=== PATIENT | female | born 1965 | race Caucasian/White ===

== ENCOUNTER 2016-12-11 10:54 | Outpatient (CLI) | payer BC ==
[~2016-12-11] VITALS: Ht 165.1 cm; Wt 85.9 kg
--- NOTE | ~2016-12-11 | HEMODYNAMI ---
PATIENT:ERICK LEGGETT MEDICAL RECORD: [id number] : 65 LOCATION:[facility] ADMISSION DATE: 12/11/16 Generatedon:12/11/201613:15 Patient name: ERICK LEGGETT Patient #: [id number] SSN: : 1965 Date of study: 12/11/2016 Page: Of Hemodynamic Procedure Report Patient Data Patient Demographics Procedure consent was obtained First Name: ERICK Gender: Female Last Name: OLEKSANDR : 1965 [facility] Initial: [place] Age: 51 year(s) Patient #: [id number] Race: Unknown Additional ID: [id number] Contact details [address]: [address] [place] [address] rd State: [place] City: [place] Zip code: [address] Past Medical History Allergies Allergen Reaction Date Comments Reported Other allergy 12/11/2016 Sulfa, PCN, Codeine, Morphine. Admission Admission Data Admission Date: 12/11/2016 Admission Time: 10:54 Lab Results Lab Result Date: 12/11/2016 Lab Result Time: 0:00 Biochemistry Name Units Result Min Max BUN mg/dl 17 --(---*)-- 7 18 Creatinine mg/dl 0.9 --(-*--)-- 0.6 1.3 CBC Name Units Result Min Max Hematocrit % 42.5 --(*---)-- 42 54 Hemoglobin g/dl 14.2 --(*---)-- 13.5 17.5 Procedure Procedure Types Cath Procedure Diagnostic Procedure LHC LHC w/Coronaries Miscellaneous Procedures Moderate Sedation up to 15 minutes Procedure Description Procedure Date Procedure Date: 12/11/2016 Procedure Start Time: 13:03 Procedure End Time: 13:15 Procedure Staff Name Function Eliot Grover MD Performing Physician Evon Crespo RT Scrub Ryan Rolon RN Nurse Davie Whittaker RT Monitor Procedure Data Cath Procedure Fluoroscopy Diagnostic fluoroscopy Total fluoroscopy Time: 1.4 time: 1.4 min min Diagnostic fluoroscopy Total fluoroscopy dose: 174 dose: 174 mGy mGy Contrast Material Contrast Material Type Amount (ml) Isovue 300 48 Entry Location Entry Primary Successful Side Size Upsize Upsize Entry Closure Cohen ccessful Closure Location (Fr) 1 (Fr) 2 (Fr) Remarks Device Remarks Radial Right 6 Fr Mechanical artery Short Compression Estimated blood loss: 5 ml Diagnostic catheters Device Type Used For End Catheter Placement Terumo 5Fr [place] 110cm Procedure catheter Procedure Complications No complications Procedure Medications Medication Administration Route Dosage Oxygen NC 2 l/min Heparin Flush Bag added to field 2 bags (1000units/500ml NS) 0.9% NaCl I.V. 100 ml/hr Radial Cocktail added to field 1 syringe (Verapomil 2mg/Nitro 400mcg/Heparin 1500units) Fentanyl I.V. 50 mcg Versed I.V. 1 mg Fentanyl I.V. 50 mcg Versed I.V. 1 mg Fentanyl I.V. 50 mcg Fentanyl I.V. 50 mcg Radial Cocktail I.A. 1 syringe (Verapomil 2mg/Nitro 400mcg/Heparin 1500units) Fentanyl I.V. 50 mcg Fentanyl I.V. 50 mcg Hemodynamics Rest HGB: 14.2 (g/dl) Heart Rate: 73 (bpm) Pressure Samples Time Site Value (mmHg) Purpose Heart Use Rate(bpm) 13:07 LV 139/-1,14 Snapshot 84 13:08 AO 113/73(87) Pullback 86 13:08 LV 136/1,15 Pullback 86 Gradients Valve Time Site 1 Site 2 Mean SEP/DFP Peak To Heart Use (mmHg) (sec/min) Peak Rate (mmHg) (bpm) Aortic 13:08 LV AO 11 20 23 86 136/1,15 113/73(87) Calculations Valve P-P Mean Valve Index Valve Source Name Gradient Area Flow (cm2) Aortic 23 11 23 11 Snapshots Pre Cath Intra NCS Post Cath Vital Signs Time Heart Resp SPO2 etCO2 XX3kilq NIBP (mmHg) Rhythm Pain Sedation Rate (ipm) (%) (mmHg) (mmHg) Status Level (bpm) 12:48:13 72 16 100 0 0 117/71(89) NSR 0 (11) 10(A) , No pain 12:52:25 72 17 100 0 0 119/72(99) NSR 0 (11) 10(A) , No pain 12:56:37 73 17 100 0 0 114/70(91) NSR 0 (11) 10(A) , No pain 13:00:45 84 17 94 0 0 115/76(100) NSR 0 (11) 10(A) , No pain 13:04:55 77 18 94 0 0 114/72(96) NSR 0 (11) 10(A) , No pain 13:09:07 86 17 93 0 0 117/64(83) NSR 0 (11) 9(A) , No pain 13:13:20 81 18 94 0 0 103/63(85) NSR 0 (11) 9(A) , No pain Medications Time Medication Route Dose Verified Delivered Reason Notes Effectiveness by by 12:48:22 Oxygen NC 2 l/min Ryan Ryan Per Gonzales Rolon RN physician RN 12:48:35 Heparin Flush added 2 bags Ryan Ryan used for Bag to Gonzales Rolon flexographic press operator (1000units/500ml field RN NS) 12:48:49 0.9% NaCl I.V. 100 Ryan Ryan Per ml/hr Gonzales Rolon RN physician RN 12:48:59 Radial Cocktail added 1 Ryan Ryan used for (Verapomil to syringe Gonzales Rolon RN procedure 2mg/Nitro field RN 400mcg/Heparin 1500units) 12:56:33 Fentanyl I.V. 50 mcg Ryan Ryan for sedation Gonzales Rolon RN RN 12:56:40 Versed I.V. 1 mg Ryan Ryan for sedation Gonzales Rolon RN RN 12:58:32 Fentanyl I.V. 50 mcg Ryan Ryan for sedation Gonzales Rolon RN RN 12:58:35 Versed I.V. 1 mg Ryan Ryan for sedation Gonzales Rolon RN RN 13:03:31 Fentanyl I.V. 50 mcg Ryan Ryan for sedation Gonzales Rolon RN RN 13:04:39 Fentanyl I.V. 50 mcg Ryan Ryan for sedation Gonzales Rolon RN RN 13:06:02 Radial Cocktail I.A. 1 Ryan Eliot for (Verapomil syringe Gonzales Grover MD vasodilation 2mg/Nitro RN 400mcg/Heparin 1500units) 13:08:01 Fentanyl I.V. 50 mcg Ryan Eliot for sedation Gonzales Grover MD, RN 13:10:02 Fentanyl I.V. 50 mcg Ryan Mccabe for sedation Gonzales Grover MD, RN Procedure Log Time Note 12:25:41 Ryan Rolon RN sent for patient. Start room use. 12:33:04 Time tracking: Regular hours 12:33:15 Plan of Care:Hemodynamics will remain stable., Cardiac rhythm will remain stable., Comfort level will be maintained., Respiratory function will remain adequate., Patient/ family verbilizes understanding of procedure., Procedure tolerated without complication., Recovers from procedure without complications.. 12:39:58 Patient received from Pre/Post Procedure Room to CCL 1 Alert and oriented. Tansferred to table in Supine position. 12:39:59 Warm blankets applied, and chiara hugger turned on for patient comfort. 12:40:00 Correct patient and procedure confirmed by team. 12:40:02 Signed procedure consent form obtained from patient. 12:40:03 ECG and BP/O2 sat monitors applied to patient. 12:47:11 Vital chart was started 12:48:22 Oxygen 2 l/min NC was administered by Ryan Rolon RN; Per physician; 12:48:35 Heparin Flush Bag (1000units/500ml NS) 2 bags added to field was administered by Ryan Rolon RN; used for procedure; 12:48:49 0.9% NaCl 100 ml/hr I.V. was administered by Ryan Rolon RN; Per physician; 12:48:59 Radial Cocktail (Verapomil 2mg/Nitro 400mcg/Heparin 1500units) 1 syringe added to field was administered by Ryan Rolon RN; used for procedure; 12:53:43 Baseline sample Acquired. 12:53:50 Rhythm: sinus rhythm 12:54:03 H&P Date Dictated: 12/10/2016 Within 30 days and on chart., H&P Addendum completed by physician on day of procedure. (MUST COMPLETE FOR ALL OUTPATIENTS). 12:54:04 Pre-procedure instructions explained to patient. 12:54:04 Pre-op teaching completed and patient verbalized understanding. 12:54:06 Family in waiting room. 12:54:07 Patient NPO since Midnight. 12:54:31 Patient allergic to Other allergySulfa, PCN, Codeine, Morphine. 12:54:39 Is the patient allergic to Iodine/contrast media? No. 12:54:41 Is patient on blood thinner?No 12:54:42 Patient diabetic? No. 12:54:46 Patient not . Patient has had hysterectomy. 12:54:49 Previous problem with sedation/anesthesia? No ? 12:54:50 Snore? No 12:54:51 Sleep apnea? No 12:54:52 Deviated septum? No 12:54:53 Opens mouth fully? Yes 12:54:54 Sticks out tongue? Yes 12:54:56 Airway obstruction? No ? 12:54:58 Dentures? No ? 12:55:04 Modified Everardo's test Ulnar < 7 seconds 12:55:06 Patient pain scale 0/10 ?. 12:55:15 IV patent on arrival in left forearm with 0.9% NaCl at [facility]. 12:55:47 Lab Result : BUN 17 mg/dl 12:55:47 Lab Result : Creatinine 0.9 mg/dl 12:55:47 Lab Result : Hemoglobin 14.2 g/dl 12:55:47 Lab Result : Hematocrit 42.5 % 12:55:50 Lab results completed and on chart. 12:55:52 Right Radial & Right Groin area was prepped with chlora-prep and draped in sterile fashion 12:55:53 Alarms reviewed by R. N. 12:55:53 Sharps counted by scrub and verified by R.N. 12:56:01 Physician arrived 12:56:01 --------ALL STOP TIME OUT------ 12:56:01 Final Timeout: patient, procedure, and site verified with staff and physician. All members of the team are in agreement. 12:56:03 Right Radial & Right Groin site verified by team. 12:56:06 Physical assessment completed. ASA score P 2 - A patient with mild systemic disease as per Eliot Grover MD. 12:56:10 Sedation plan: IV Moderate Sedation Versed, Fentanyl 12:56:13 Use device set Radial Dx 12:56:14 MBrace Wrist Support opened to sterile field. 12:56:15 Tegaderm 4 x 4 opened to sterile field. 12:56:15 Acist Manifold opened to sterile field. 12:56:16 Acist Hand Control opened to sterile field. 12:56:17 Acist Syringe opened to sterile field. 12:56:18 Medline Cath Pack opened to sterile field. 12:56:18 Bag Decanter opened to sterile field. 12:56:19 Terumo 6Fr Slender Glidesheath opened to sterile field. 12:56:20 St Kvng 260cm J .035 wire opened to sterile field. 12:56:33 Fentanyl 50 mcg I.V. was administered by Ryan Rolon RN; for sedation; 12:56:40 Versed 1 mg I.V. was administered by Ryan Rolon RN; for sedation; 12:58:32 Fentanyl 50 mcg I.V. was administered by Ryan Rolon RN; for sedation; 12:58:35 Versed 1 mg I.V. was administered by Ryan Rolon RN; for sedation; 13:02:53 Zero performed for pressure channel P1 13:03:20 Procedure started. 13:03:20 Full Disclosure recording started 13:03:25 Local anesthetic to right radial artery with Lidocaine 2% by Eliot Grover MD.INITIAL ACCESS ONLY 13:03:31 Fentanyl 50 mcg I.V. was administered by Ryan Rolon RN; for sedation; 13:04:39 Fentanyl 50 mcg I.V. was administered by Ryan Rolon RN; for sedation; 13:05:13 A 6 Fr Short sheath was inserted into the Right Radial artery 13:06:02 Radial Cocktail (Verapomil 2mg/Nitro 400mcg/Heparin 1500units) 1 syringe I.A. was administered by Eliot Grover MD; for vasodilation; 13:06:23 A Terumo 5Fr [place] 110cm catheter was advanced over the wire and used for Procedure. 13:07:35 LV gram done using SHIRLEY 13:07:38 Injector settings: Ml/sec: 10, Volume: 20, 13:07:51 EF : 60 % 13:08:01 Fentanyl 50 mcg I.V. was administered by Eliot Grover MD; for sedation; 13:08:34 LCA angiography performed. 13:09:43 RCA angiography performed. 13:10:02 Fentanyl 50 mcg I.V. was administered by Eliot Grover MD; for sedation; 13:10:09 Terumo TR Band Standard opened to sterile field. 13:10:59 Catheter removed. 13:11:07 Sheath removed intact; hemostasis achieved with Mechanical Compression to the Right Radial artery. 13:11:09 Procedure ended.(Physican Out) 13:11:47 Fluoroscopy time 01.40 minutes. 13:11:52 Fluoroscopy dose: 174 mGy 13:11:52 Flurop Dose total: 174 13:12:07 Contrast amount:Isovue 300 48ml. 13:12:08 Sharps counted by scrub and verified by R.N. 13:12:11 TR band inflated with 12cc of air. 13:12:13 Insertion/operative site no bleeding no hematoma. 13:12:32 Post right radial artery:stable, soft, clean and dry 13:12:35 Post Procedure Pulses reassessed and unchanged 13:12:38 Post-procedure physical assessment completed. ASA score P 2 - A patient with mild systemic disease as per Eliot Grover MD. 13:12:40 Post procedure rhythm: unchanged. 13:12:43 Estimated blood loss: 5 ml 13:12:44 Post procedure instruction explained to patient.Patient verbalizes understanding. 13:12:45 Patient needs reinforcement of post procedure teaching. 13:14:28 Procedure type changed to Cath procedure, Diagnostic procedure, LHC, LHC w/Coronaries, Miscellaneous Procedures, Moderate Sedation up to 15 minutes 13:14:46 Procedure and supply charges have been captured, reviewed, submitted and are correct. 13:14:48 Procedure Complication : No complications 13:14:50 Vital chart was stopped 13:14:51 See physician's report for complete and final results. 13:14:52 Report given to Pre/Post Procedure Room. 13:15:00 Patient transfered to Pre/Post Procedure Room with Stretcher. 13:15:05 Procedure ended. 13:15:05 Full Disclosure recording stopped 13:15:11 End room use (Document Last) Device Usage Item Name Manufacture Quantity Catalog Hospital Part Current Minimal Lot# / Number Charge Number Stock Stock Serial# Code [facility] 1 140-0250-00 812558 91307 376678 5 Wrist Vascular Support Dynamics Tegaderm 4 3M 1 1626W 908326 310300 787354 5 x 4 Acist Acist 1 81045 371653 793122 280942 5 Multiplicom Inc Acist Hand Acist 1 57381 579683 381236 774247 5 Tunepresto Inc Acist Acist 1 72404 612724 888768 310243 20 Syringe Medical Systems Inc Medline Cardinal 1 [id number] 439554 77955 897092 5 Cath Pack Health Bag Microtek 1 757743 40913 190842 5 Decanter Medical Inc. Terumo 6Fr Terumo 1 [id number] 622380 352218 367010 [address] K[address] St Kvng 1 062002 153113 668004 679518 30 260cm J .035 wire Terumo 5Fr Terumo 1 40501 708758 170247 702101 5 [place] 110cm catheter Terumo TR Terumo 1 [id number] 799733 825195 965308 40 Band Standard Signature Audit [place] Stage Time Signature Unsigned Intra-Procedure 12/11/2016 Davie Whittaker 1:15:34 PM RT(R) Signatures Monitor : Davie Whittaker RT Signature : Date : Time : [id number] [place] [address]
[~2016-12-11 10:54] MED LIST: DESERYL100 MG PO; MOBIC7.5 MG PO; NEURONTIN 300300 MG PO; NEURONTIN600 MG; NEURONTIN600 MG PO; POTASSIUM CHLO20 MEQ; POTASSIUM CITRA5 MEQ PO; SOMA250 MG PO; SOMA350 MG PO; SYNTHROID75 MCG PO; XANAX0.5 MG PO
[2016-12-11] MEDS ORDERED: XANAX0.25 MG PO (11:06)
[2016-12-11 11:15] VITALS: BP 121/67; Ht 165.1 cm; Wt 85.9 kg
[2016-12-11 11:23] LABS: BASOPHILS 0.4 % (0.0-2.0); EOSINOPHILS 1.2 % (0-7); HEMATOCRIT 42.5 % (36.0-48.0); HEMOGLOBIN 14.2 g/dL (12-16); IMMATURE GRANULOCYTES 0.2 % (0-5); LYMPHOCYTES 23.7 % (15-50); MCH 30.3 pg (26.0-34.0); MCHC 33.4 g/dL (31.0-37.0); MCV 90.8 fL (80.0-100.0); MEAN PLATELET VOLUME 9.1 fL (7.4-10.4); MONOCYTES 6.5 % (2-11); PLATELET COUNT 305 10x3/uL (130-400); RBC 4.68 10x6/uL (4.00-5.40); RDW 13.2 % (11.5-14.5); WBC 10.4 10x3/uL (4.8-10.8)
[2016-12-11 11:43] LABS: ANION GAP 14.6 mmol/L (8-16); CALCIUM 9.2 mg/dL (8.5-10.1); CARBON DIOXIDE 24.8 mmol/L (21.0-32.0); CREATININE - SERUM 0.9 mg/dL (0.6-1.3); POTASSIUM - SERUM 4.4 mmol/L (3.5-5.1)
--- NOTE | 2016-12-11 13:49 | NUR ---
1340 HOB ELEVATED, RESTING WITH EYES CLOSED. ROOM AIR WITH NO RESP. DISTRESS. NSR RATE 61 W NO C/O CHEST PAIN. PULSES PALP X 4. R WRIST TR BAND C/D/I WITH NO HEMATOMA OR BLEEDING. FAMILY AT BEDSIDE. DENIES NEEDS AT THIS TIME. 1350 SITTING UP EATING TURKEY TRAY AND SIPPING SODA, NO NAUSEA.
--- NOTE | 2016-12-11 14:39 | NUR ---
1410 RESTING WITH EYES CLOSED. ALL VITALS WNL. R WRIST TR REMAINS C/D/I WITH NO HEMATOMA OR BLEEDING.
--- NOTE | 2016-12-11 15:30 | NUR ---
3CC OF AIR REMOVED FROM TR BAND. NO BLEEDING NOTED.
--- NOTE | 2016-12-11 15:45 | NUR ---
2CC OF AIR REMOVED FROM TR BAND. NO BLEEDING NOTED. LEFT FA PIV D/C'D WITH CATHTER INTACT. BAND AID TO SITE. UP TO BEDSIDE TO GET DRESSED.
--- NOTE | 2016-12-11 15:50 | NUR ---
UP TO RESTROOM TO VOID.
--- NOTE | 2016-12-11 15:55 | NUR ---
REMAINING AIR REMOVED FROM TR BAND. DRESSING PLACED AT SITE. DISCHARGE INSTRUCTIONS GIVEN, VERBALIZED UNDERSTANDING.
--- NOTE | 2016-12-11 16:05 | NUR ---
TAKEN OUT VIA WHEELCHAIR BY CATH ADMISSIONS MANAGER RN. LEFT FACILITY WITH FAMILY MEMBER AND ALL PERSONAL BELONGINGS.
--- NOTE | 2016-12-13 14:54 | OP ---
PATIENT NAME: ERICK LEGGETT MEDICAL RECORD: [id number] :65 LOCATION:[facility] ADMISSION DATE: SURGEON: GERSON LIRIANO M.D. DATE OF OPERATION: 12/11/2016 Catheterization Report REFERRING PHYSICIAN: Dr. Gerson Israel. PROCEDURES PERFORMED: 1. Selective coronary angiography. 2. Left heart catheterization and ventriculogram. INDICATION: A 51-year-old woman who presents with symptoms of accelerating angina. EQUIPMENT USED: A 5-Grenadian Seabrook catheter. TECHNIQUE: A 6-Grenadian sheath was inserted in retrograde fashion in the right radial artery. Next, selective coronary angiography was performed in standard 5-Grenadian Seabrook catheter. Left heart catheterization, we used Seabrook catheter as well. CORONARY ANATOMY: 1. Left main: Left main trunk is moderate in caliber. It gives rise to the LAD and circumflex. It is angiographically normal. 2. LAD: This is a large caliber vessel extending to the apex. 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 Otherwise, the vessel is angiographically normal. 3. Circumflex: This vessel is large in caliber and dominant. It supplies the PDA and posterolateral branches in the distal segment. This vessel is smooth-walled and angiographically normal. 4. Right coronary: This vessel is moderate caliber and nondominant. It is a smooth-walled vessel and angiographically normal. 5. Left ventricle: Left ventricle is normal in size and function. No wall motion abnormalities are noted. Estimated ejection fraction is 60%. IMPRESSION: 1. Normal coronary arteries. 2. Normal left ventricular function. RECOMMENDATIONS: I suspect her chest pain is noncardiac in origin. We will continue with medical management. TRANSINT:[id number] Voice Confirmation ID: [id number] DOCUMENT ID: [id number] GERSON LIRIANO M.D. at 1454 CC: [id number] DICTATION DATE: 12/11/16 1317 EXECUTIVE ASSISTANT TO GENERAL COUNSEL: 12/11/162032 DEP CLI 12/11/16 [id number] [place] [address]
== END 2016-12-11 16:05 | disposition home or self-care (01) ==
LOC: D.CATH 10:54
PROVIDERS: Internal Medicine Cardiovascular Disease
DX: R07.89 Other chest pain (principal)

== ENCOUNTER 2018-05-28 08:15 | Day surgery (SDC) | payer BC ==
[2018-05-27 09:56] LABS: MCH 30.4 pg (26.0-34.0); MCHC 33.3 g/dL (31.0-37.0); MCV 91.3 fL (80.0-100.0); MEAN PLATELET VOLUME 8.8 fL (7.4-10.4); RBC 4.27 10x6/uL (4.00-5.40); RDW 14.2 % (11.5-14.5); WBC 6.4 10x3/uL (4.8-10.8)
[2018-05-27 10:00] LABS: CALC OSMOLALITY 278 mosm/kg (275-300); CALCIUM 8.7 mg/dL (8.5-10.1); CARBON DIOXIDE 29.9 mmol/L (21.0-32.0); CHLORIDE - SERUM 103 mmol/L (98-107); CREATININE - SERUM 0.8 mg/dL (0.6-1.3); GLUCOSE 99 mg/dL (74-106); POTASSIUM - SERUM 4.4 mmol/L (3.5-5.1); SODIUM 138 mmol/L (136-145); UREA NITROGEN 21 mg/dL (7-18); eGFR NON AFRICAN AMERICAN 80 mL/min (90-120)
[~2018-05-28] VITALS: Ht 162.6 cm; Wt 81.6 kg
--- NOTE | ~2018-05-28 | OP ---
PATIENT NAME: ERICK LEGGETT MEDICAL RECORD: [id number] :65 LOCATION:[facility] ADMISSION DATE: SURGEON: YRUI THOMAS MD DATE OF OPERATION: 05/28/2018 PREOPERATIVE DIAGNOSIS: Recalcitrant left lateral epicondylitis. POSTOPERATIVE DIAGNOSIS: Recalcitrant left lateral epicondylitis. PROCEDURE: Lateral epicondylar excision with debridement of the lateral epicondylar extensor mass. SURGEON: Yuri Thomas MD ANESTHESIA: General. INTRAOPERATIVE COMPLICATIONS: None. SUMMARY OF PATHOLOGIC FINDINGS: The patient did have significant tendinotic appearing common origin with obvious signs of prior cortisone injections. OPERATIVE SUMMARY IN DETAIL: After obtaining the appropriate preoperative orthopedic surgery consent as well as anesthetic consultation, evaluation and clearance the patient was brought to the operating room and placed on the operating table in supine position. After adequate general laryngeal mask airway was administered, the patient's left upper extremity was prepared with a tourniquet. It was then prepped and draped in routine sterile fashion. The arm was elevated and exsanguinated, tourniquet was inflated to 250 mmHg. An incision was made directly over the lateral epicondyle, taken down to the level of the lateral epicondyle with careful dissection down to the fascial plane. Fascial plane was then gently split in an oval type fashion. The tendonotic appearing fibers deep were all excised and a complete release was performed to reveal the lateral epicondyle. A portion of the lateral epicondyle was then taken down smoothly with an osteotome to create a good bleeding surface. At this point, a single 3.0 SutureTak was then placed in the lateral epicondyle and used to reapproximate the healthy residual common extensor mechanism. This was then oversewn with a #1 Vicryl. Final skin closure was completed with a 2-0 Vicryl and 4-0 Prolene in running fashion. Sterile dressings were applied. Tourniquet was deflated. The patient was awakened, taken to recovery room in stable condition. All final needle and sponge counts were correct. TRANSINT:[id number] Voice Confirmation ID: [id number] DOCUMENT ID: [id number] YURI THOMAS MD at 1418 CC: [id number] DICTATION DATE: 05/28/18 1233 RUNNER MAN: 05/28/18 1244 DEP SD 05/28/18 [facility] [address] [place] [address]
[~2018-05-28 08:15] MED LIST changes: +DUEXIS 800-26.1 EACH PO; +PAXIL40 MG PO; +PRINZIDE 20/12.1 TA1 PO; +RESTORIL15 MG PO; +XANAX0.25 MG PO
[2018-05-28 08:48] VITALS: BP 117/65; Ht 162.6 cm; Wt 81.6 kg
[2018-05-28] MEDS ORDERED: DILAUDID2 MG PO (10:20)
== END 2018-05-28 12:15 | disposition home or self-care (01) ==
LOC: D.OPS 08:15 → D.PAN 10:10 → D.OPS 11:30 → D.PAN 11:30 → D.OPS 12:15
PROVIDERS: Anesthesiology
DX: M77.12 Lateral epicondylitis, left elbow (principal)

== ENCOUNTER 2018-10-22 08:34 | Day surgery (SDC) | payer BC ==
[~2018-10-22] VITALS: Ht 162.6 cm; Wt 81.6 kg
[~2018-10-22 08:34] MED LIST changes: +DILAUDID2 MG PO
[2018-10-22 09:10] LABS: HEMATOCRIT 40.2 % (36.0-48.0); HEMOGLOBIN 13.7 g/dL (12-16); MCH 30.6 pg (26.0-34.0); MCHC 34.1 g/dL (31.0-37.0); MCV 89.9 fL (80.0-100.0); MEAN PLATELET VOLUME 8.5 fL (7.4-10.4); RBC 4.47 10x6/uL (4.00-5.40); RDW 13.8 % (11.5-14.5); WBC 4.8 10x3/uL (4.8-10.8)
[2018-10-22 09:15] LABS: CALC OSMOLALITY 285 mosm/kg (275-300); CARBON DIOXIDE 25.5 mmol/L (21.0-32.0); CHLORIDE - SERUM 105 mmol/L (98-107); CREATININE - SERUM 0.8 mg/dL (0.6-1.3); GLUCOSE 102 mg/dL (74-106); POTASSIUM - SERUM 4.1 mmol/L (3.5-5.1); SODIUM 142 mmol/L (136-145); UREA NITROGEN 22 mg/dL (7-18); eGFR NON AFRICAN AMERICAN 79 mL/min (90-120)
[2018-10-22] MEDS ORDERED: VIBRAMYCIN 100100 MG PO (09:28)
[2018-10-22 09:50] VITALS: BP 109/74; Ht 162.6 cm; Wt 81.6 kg
[2018-10-22] MEDS ORDERED: HYDROCODON-ACE1 EA10 PO (14:53)
--- NOTE | 2018-11-02 09:18 | OP ---
PATIENT NAME: ERICK LEGGETT MEDICAL RECORD: [id number] :65 LOCATION:[facility] ADMISSION DATE: SURGEON: YURI THOMAS MD DATE OF OPERATION: 10/22/2018 PREOPERATIVE DIAGNOSES: Postoperative capsular breakdown, status post lateral epicondylectomy with essentially complete capsular rupture. POSTOPERATIVE DIAGNOSES: Postoperative capsular breakdown, status post lateral epicondylectomy with essentially complete capsular rupture. PROCEDURE: Excisional debridement of the left elbow with repeat closure of the capsule (capsulorrhaphy and repeat musculotendinous repair to bone) SURGEON: Yuri Thomas MD PHOTOGRAPH PRINTER: Kyler Thomas INTRAOPERATIVE COMPLICATIONS: None. SUMMARY OF PATHOLOGIC FINDINGS: Upon incising the skin, the patient was indeed found to have a large patulous capsular defect. While the patient had had former lateral epicondylectomy and was experiencing no pain, she had a very large bulbous swelling on the lateral side consistent with a capsular breakdown. This was indeed what was found at the time of surgery. OPERATIVE SUMMARY IN DETAIL: After obtaining the appropriate preoperative orthopedic surgery consent as well as anesthetic consultation, evaluation and clearance, the patient was brought to the operating room and placed on the operating table in supine position. After adequate general laryngeal mask airway was administered, tourniquet was placed on the proximal aspect of the left lower extremity. Left lower extremity was prepped and draped in routine sterile fashion. The arm was elevated, it was not exsanguinated due to the amount of fluid noted. Incision was made over the previously made incision and immediately upon incising the skin, substantial amounts of joint fluid, clear in appearance was evacuated. The open of the capsule measured approximately 1.5 cm x 1.5 circular. Clear visualization of the radiocapitellar joint was noted. After copious amounts of excisional debridement of any nonviable appearing tissue, the capsule was reconstructed with #0 FiberWire in a watertight fashion. Previously placed suture anchor was removed and was replaced for repeat reconstruction of the extensor mechanism back to the lateral epicondyle. Again, the watertight theme was carried throughout the entire capsular and muscular closure. Having completed this, skin was reapproximated with #2 Vicryl followed by 4-0 Prolene done by Kyler Thomas. Sterile dressings were applied. The patient was placed in a posterior splint. Having completed this, the patient was awakened and taken to the recovery room in stable condition. All final needle and sponge counts were correct. TRANSINT:[id number] Voice Confirmation ID: [id number] DOCUMENT ID: [id number] OPERATIVE REPORT [id number] ERICK LEGGETT MD, YURI YOUNG at 0918 CC: [id number] DICTATION DATE: 10/30/18927 ACCOUNTING SOFTWARE SPECIALIST: 10/30/18 1036 [facility] 10/22/18 [place] [id number]
== END 2018-10-22 17:23 | disposition home or self-care (01) ==
LOC: D.OPS 08:34
PROVIDERS: Anesthesiology
DX: M25.822 Other specified joint disorders, left elbow (principal); M96.89 Other intraoperative and postprocedural complications and disorders of the musculoskeletal system; Z01.812 Encounter for preprocedural laboratory examination

== ENCOUNTER → 2018-11-27 12:26 | Outpatient (CLI) | payer BC ==
[2018-10-22 09:50] VITALS: BMI 30.9
[~2018-11-27 12:26] MED LIST changes: +HYDROCODON-ACE1 EA10 PO; +VIBRAMYCIN 100100 MG PO
== END | disposition home or self-care (01) ==
LOC: D.MRI 12:26
PROVIDERS: ATTEND Family Medicine
DX: M25.522 Pain in left elbow (principal)

== ENCOUNTER → 2020-12-29 10:33 | Outpatient (CLI) | payer BC ==
[2018-10-22 09:50] VITALS: BMI 30.9
== END | disposition home or self-care (01) ==
LOC: D.MRI 10:33
PROVIDERS: ATTEND Family Medicine
DX: M54.32 Sciatica, left side (principal)